=== PATIENT | male | born 1955 | race Caucasian/White ===

== ENCOUNTER 2022-02-10 20:46 | Inpatient (IN) | payer MEDICARE, OTHER ==
[~2022-02-10] VITALS: Ht 175.3 cm; Wt 83.9 kg
[~2022-02-10 20:46] MED LIST: ASPIR 8181 MG PO; ATORVASTATIN CA20 MG PO; CHOLESTOFF PO; FARXIGA10 MG PO; FISH OIL 1,0001 EAC2 PO; JENTADUETO 2.51 EACH PO; LEVOTHYROXINE50 MCG PO; METFORMIN HCL500 MG PO; METOPROLOL TART25 MG PO; MULTI-VITAMIN1 EACH PO; NIACIN500 M2 PO; PLAVIX75 MG PO; TRULICITY1.5 MG/0.5 SC; TURMERIC538 MG PO; vit d PO
[2022-02-10] MEDS ORDERED: ASPIRIN 81 MG CHEW TAB PO ONE (21:00)
[2022-02-10 21:40] LABS: BASOPHILS # (AUTO) 0.1 (0.0-0.1); BASOPHILS % 0.7 % (0.0-1.0); EOSINOPHILS # (AUTO) 0.1 (0.0-0.4); HEMOGLOBIN 14.9 g/dL (14.0-18.0); LYMPHOCYTES # (AUTO) 2.2 (1.0-3.2); LYMPHOCYTES % 22.8 % (18.0-39.1); MEAN CORPUSCULAR HEMOGLOBIN 30.2 pg (28-32); MEAN CORPUSCULAR HGB CONC 33.1 g/dL (31-35); MEAN CORPUSCULAR VOLUME 91.3 fL (81-99); MONOCYTES # (AUTO) 0.8 (0.2-0.8); MONOCYTES % 8.6 % (4.4-11.3); NEUTROPHILS # (AUTO) 6.1 (2.1-6.9); NEUTROPHILS % 63.9 % (38.7-80.0); PLATELET COUNT 250 x10e3/uL (140-360); RED BLOOD COUNT 4.93 x10e6/uL (4.3-5.7); RED CELL DISTRIBUTION WIDTH 14.1 % (11.7-14.4)
[2022-02-10 22:01] LABS: ALBUMIN 3.8 g/dL (3.5-5.0); ALBUMIN/GLOBULIN RATIO 1.4 (0.8-2.0); CALCIUM 8.6 mg/dL (8.4-10.2); CREATININE, SERUM 1.07 mg/dL (0.72-1.25)
[2022-02-10 22:08] LABS: CREATINE KINASE MB 2.2 ng/mL (0-5.0)
[2022-02-11] VITALS (9 sets, daily range): BP systolic 121–151; BP diastolic 60–89
[2022-02-11 00:07] LABS: CREATINE KINASE MB 2.3 ng/mL (0-5.0)
[2022-02-11] MEDS ORDERED: ONDANSETRON HCL INJ 2MG/ML 2ML 2 MG/ML VIAL IV PRN (00:15)
[2022-02-11] MEDS: Morphine 4mg Syringe 4 MG/ML INJ IV PRN ×2 (01:16→21:39)
[2022-02-11] MEDS: LEVOTHYROXINE SODIUM 50 MCG TAB PO SCH (07:52)
[2022-02-11] MEDS: CLOPIDOGREL BISULFATE 75 MG TAB PO SCH (07:52)
[2022-02-11] MEDS: ASPIRIN 81 MG CHEW TAB PO SCH (07:52)
[2022-02-11] MEDS: METFORMIN HCL 500 MG TAB PO SCH ×2 (07:52→16:52)
[2022-02-11] MEDS: METOPROLOL TARTRATE 25 MG TAB PO SCH ×2 (07:54→16:53)
[2022-02-11] MEDS: NON-FORMULARY MEDICATION (Dapagliflozin Propanediol (Farxiga) 10 MG) PO SCH (07:55)
[2022-02-11 09:02] LABS: CREATINE KINASE MB 2.1 ng/mL (0-5.0)
[2022-02-11] MEDS ORDERED: DEXTROSE 50% SYRINGE 50 ML IV PRN (10:00)
[2022-02-11] MEDS: INSULIN LISPRO 100 UNIT/1 ML 3ML VIAL SQ SCH ×3 (11:30→21:31)
[2022-02-11 18:37] LABS: CREATINE KINASE MB 1.6 ng/mL (0-5.0)
[2022-02-11] MEDS: ATORVASTATIN 20 MG TAB PO SCH (21:15)
[2022-02-11] MEDS: ZOLPIDEM TARTRATE 10 MG TAB PO PRN (21:16)
[2022-02-12] VITALS (8 sets, daily range): BP systolic 104–150; BP diastolic 59–80
[2022-02-12 04:52] LABS: BASOPHILS # (AUTO) 0.1 (0.0-0.1); BASOPHILS % 0.5 % (0.0-1.0); EOSINOPHILS # (AUTO) 0.2 (0.0-0.4); EOSINOPHILS % 1.7 % (0.0-6.0); HEMATOCRIT 45.3 % (38.2-49.6); LYMPHOCYTES % 17.6 % (18.0-39.1); MEAN CORPUSCULAR HEMOGLOBIN 30.1 pg (28-32); MEAN CORPUSCULAR HGB CONC 33.1 g/dL (31-35); MONOCYTES # (AUTO) 1.1 (0.2-0.8); MONOCYTES % 9.3 % (4.4-11.3); NEUTROPHILS # (AUTO) 7.9 (2.1-6.9); NEUTROPHILS % 69.3 % (38.7-80.0); PLATELET COUNT 219 x10e3/uL (140-360); RED BLOOD COUNT 4.98 x10e6/uL (4.3-5.7); RED CELL DISTRIBUTION WIDTH 14.1 % (11.7-14.4)
[2022-02-12 05:17] LABS: ALBUMIN 3.4 g/dL (3.5-5.0); ALBUMIN/GLOBULIN RATIO 1.4 (0.8-2.0); ANION GAP 13.2 mmol/L (8-16); CALCIUM 8.5 mg/dL (8.4-10.2); CREATININE, SERUM 0.96 mg/dL (0.72-1.25); POTASSIUM 4.2 mmol/L (3.5-5.1)
[2022-02-12] MEDS: INSULIN LISPRO 100 UNIT/1 ML 3ML VIAL SQ SCH ×4 (07:30→21:00)
[2022-02-12] MEDS: ASPIRIN 81 MG CHEW TAB PO SCH (09:00)
[2022-02-12] MEDS: LEVOTHYROXINE SODIUM 50 MCG TAB PO SCH (09:00)
[2022-02-12] MEDS: CLOPIDOGREL BISULFATE 75 MG TAB PO SCH (09:00)
[2022-02-12] MEDS: METOPROLOL TARTRATE 25 MG TAB PO SCH ×2 (09:00→17:00)
[2022-02-12] MEDS: METFORMIN HCL 500 MG TAB PO SCH ×2 (09:00→17:00)
[2022-02-12] MEDS: NON-FORMULARY MEDICATION (Dapagliflozin Propanediol (Farxiga) 10 MG) PO SCH (09:00)
[2022-02-12] MEDS ORDERED: FENTANYL CITRATE/PF 100MCG/2 ML INJ ONE (10:51)
[2022-02-12] MEDS ORDERED: MIDAZOLAM HCL 2 MG/2 ML VIAL ONE ×2 (10:51→11:54)
[2022-02-12] MEDS ORDERED: IOPAMIDOL 370 MG/ML 200 ML INFUS..BTL INJ ONE ×3 (10:52→11:56)
[2022-02-12] MEDS ORDERED: SODIUM CHLORIDE 0.9% 1000ML 1,000 ML ONE (10:52)
[2022-02-12] MEDS ORDERED: SODIUM CHLORIDE 0.9% 500ML 500 ML ONE (13:33)
[2022-02-12] MEDS ORDERED: SODIUM CHLORIDE 0.9% 500ML 500 ML IV ONE (14:30)
[2022-02-12] MEDS: ATORVASTATIN 20 MG TAB PO SCH (20:49)
[2022-02-12] MEDS: ZOLPIDEM TARTRATE 10 MG TAB PO PRN (20:50)
[2022-02-12] MEDS ORDERED: LEVOTHYROXINE SODIUM 50 MCG TAB PO SCH (21:00)
[2022-02-13] VITALS: BP 126/66
[2022-02-13 04:00] VITALS: BP 133/79
[2022-02-13] MEDS ORDERED: LEVOTHYROXINE SODIUM 50 MCG TAB PO SCH (06:00)
[2022-02-13] MEDS: INSULIN LISPRO 100 UNIT/1 ML 3ML VIAL SQ SCH (07:30)
[2022-02-13 07:44] VITALS: BP 136/76
[2022-02-13] MEDS: NON-FORMULARY MEDICATION (Dapagliflozin Propanediol (Farxiga) 10 MG) PO SCH (08:21)
[2022-02-13] MEDS: ASPIRIN 81 MG CHEW TAB PO SCH (08:22)
[2022-02-13] MEDS: METFORMIN HCL 500 MG TAB PO SCH (08:25)
[2022-02-13] MEDS: METOPROLOL TARTRATE 25 MG TAB PO SCH (08:25)
[2022-02-13] MEDS: CLOPIDOGREL BISULFATE 75 MG TAB PO SCH (08:25)
[2022-02-13 08:50] VITALS: BP 136/76
== END 2022-02-13 10:04 | disposition home or self-care (01) | DRG 287 ==
LOC: ER 20:53 → ERHOLD 02-11 01:01 → MED/SURG 02-11 01:19 → OBSVTOIN 02-12 16:34
PROC: 4A023N7 Measurement of Cardiac Sampling and Pressure, Left Heart, Percutaneous Approach (ICD-10-PCS; principal; 2022-02-12)
PROC: B3101ZZ Fluoroscopy of Thoracic Aorta using Low Osmolar Contrast (ICD-10-PCS; 2022-02-12)
PROC: B2131ZZ Fluoroscopy of Multiple Coronary Artery Bypass Grafts using Low Osmolar Contrast (ICD-10-PCS; 2022-02-12)
PROC: B2111ZZ Fluoroscopy of Multiple Coronary Arteries using Low Osmolar Contrast (ICD-10-PCS; 2022-02-12)
PROC: B2151ZZ Fluoroscopy of Left Heart using Low Osmolar Contrast (ICD-10-PCS; 2022-02-12)
PROC: B2181ZZ Fluoroscopy of Left Internal Mammary Bypass Graft using Low Osmolar Contrast (ICD-10-PCS; 2022-02-12)
DX: I24.9 Acute ischemic heart disease, unspecified (principal); I25.110 Atherosclerotic heart disease of native coronary artery with unstable angina pectoris; I25.10 Atherosclerotic heart disease of native coronary artery without angina pectoris; Z95.1 Presence of aortocoronary bypass graft; E11.9 Type 2 diabetes mellitus without complications; Z79.4 Long term (current) use of insulin; Z79.899 Other long term (current) drug therapy; E03.9 Hypothyroidism, unspecified; E78.5 Hyperlipidemia, unspecified; Z20.822 Contact with and (suspected) exposure to COVID-19
CPT/HCPCS: 36200; 36415; 71045; 75605; 80053; 82550; 82553; 82948; 83036; 83880; 84484; 85025; 93005; 93306; 93459; 94799; 96372; 99152; 99153; 99284; C1760; C1766; C1769; C1887; G0378; J2250; J2270; J2405; J3010; J7030; J7040; Q9967; U0002